=== PATIENT | female | born 2000 | race Hispanic/Latino ===

== ENCOUNTER 2021-03-04 15:50 | Emergency (ER) | payer MEDICAID, SELFPAY ==
[2021-03-04] MEDS ORDERED: Acetaminophen 500 MG TAB ONE (16:25)
== END 2021-03-04 17:38 | disposition home or self-care (01) ==
LOC: MADERS 15:50
DX: O9A.219 Injury, poisoning and certain other consequences of external causes complicating pregnancy, unspecified trimester (principal); S19.9XXA Unspecified injury of neck, initial encounter; S20.412A Abrasion of left back wall of thorax, initial encounter; O99.330 Smoking (tobacco) complicating pregnancy, unspecified trimester; F17.210 Nicotine dependence, cigarettes, uncomplicated; O99.891 Other specified diseases and conditions complicating pregnancy; R00.0 Tachycardia, unspecified; R11.0 Nausea; Y04.0XXA Assault by unarmed brawl or fight, initial encounter
CPT/HCPCS: 70491